=== PATIENT | male | born 1940 | race Caucasian/White ===

== ENCOUNTER 2019-08-06 10:04 | Outpatient (CLI) | payer MEDICARE, BC ==
[2019-08-06 13:17] LABS: Hemoglobin 14.3 g/dL (14.0-18.0); Mean Corpuscular HGB CONC 33.7 g/dL (32.0-36.0); Mean Corpuscular Hemoglobin 32.2 pg (27.0-31.0); Mean Corpuscular Volume 95.4 fL (78.0-98.0); Mean Platelet Volume 8.8 fL (7.4-10.4); Platelet Count 183 thou/uL (130-400); RBC Distribution Width 11.6 % (11.5-14.5); Red Blood Cell (RBC) Count 4.46 mill/uL (4.70-6.10); White Blood Cell (WBC) Count 8.1 thou/uL (4.8-10.8)
[2019-08-06 13:26] LABS: PTT 35.7 SEC (22.9-36.1)
[2019-08-06 13:32] LABS: Bacteria/HPF None Seen HPF (None Seen); Bilirubin Negative (Negative); Blood, Urine Negative (Negative); Clarity Clear (Clear); Glucose, Urine (Dipstick) Normal (Negative); Leukocyte Negative Leu/uL (Negative); Nitrite Negative (Negative); Protein, Urine (Dipstick) Negative (Neg-Trace); RBC/HPF 0-3 HPF (0-3); Squamous Epithelial 0-3 HPF (0-3); Urobilinogen Normal mg/dL (Less than 2); WBC/HPF 0-3 HPF (0-3)
[2019-08-06 13:45] LABS: Anion Gap 13 mmol/L (10-20); BUN (Urea Nitrogen) 26 mg/dL (8.4-25.7); Calc. Creatinine Clearance 0 mL/min (70-130); Calcium 9.1 mg/dL (7.8-10.44); Carbon Dioxide 23 mmol/L (23-31); Chloride 107 mmol/L (98-107); Estimated GFR-MDRD 60; Glucose 89 mg/dL (83-110); Potassium 4.3 mmol/L (3.5-5.1); Sodium 139 mmol/L (136-145)
== END 2019-08-06 10:05 | disposition home or self-care (01) ==
LOC: LABBT 10:04
PROVIDERS: ATTEND Urology
DX: Z01.818 Encounter for other preprocedural examination (principal); N40.1 Benign prostatic hyperplasia with lower urinary tract symptoms; N39.41 Urge incontinence; Q54.0 Hypospadias, balanic; R68.82 Decreased libido; E29.1 Testicular hypofunction; G47.33 Obstructive sleep apnea (adult) (pediatric); N52.9 Male erectile dysfunction, unspecified; N28.89 Other specified disorders of kidney and ureter; Z79.3 Long term (current) use of hormonal contraceptives
CPT/HCPCS: 80048; 81001; 85027; 85610; 85730; 87086; 93005; 93010

== ENCOUNTER 2019-08-11 08:13 | Outpatient (CLI) | payer MEDICARE, BC ==
--- NOTE | 2019-08-11 10:34 | RAD ---
EXAM: IVP HISTORY: BPH and ureterocele COMPARISON: None FINDINGS: A husbandry technician radiograph was performed showing a nonobstructive bowel gas pattern. No obvious calcification s are seen overlying either renal shadow. There are bilateral symmetric prompt nephrograms. The kidneys are normal in size and orientation. Symmetric excretion of contrast into the renal calyces is seen. No hydronephrosis is seen. Both ureters were seen in their entirety . No filling defects are seen in either ureter. No focal abnormality of the urinary bladder is seen. No significant post void residual. IMPRESSION: Unremarkable IVP
[2019-08-11] MEDS ORDERED: Iopamidol 300 61% 100 ML VIAL FS ONE (13:46)
== END 2019-08-11 08:14 | disposition home or self-care (01) ==
LOC: RAD 08:13
PROVIDERS: ATTEND Urology
DX: N40.1 Benign prostatic hyperplasia with lower urinary tract symptoms (principal); N13.8 Other obstructive and reflux uropathy; N28.89 Other specified disorders of kidney and ureter
CPT/HCPCS: 74410; Q9967

== ENCOUNTER 2019-08-12 08:30 | Day surgery (SDC) | payer MEDICARE, BC ==
[2019-08-06 11:35] VITALS: BMI 30.1
[2019-08-12] MEDS ORDERED: Levofloxacin 500 mg/D5W 100 ml Premix Bag ONE (08:55)
[2019-08-12] MEDS ORDERED: Lidocaine 1% PF 5 ML VIAL ONE (09:28)
[2019-08-12] MEDS ORDERED: PROPOFOL 200 MG/20 ML VIAL ONE (09:28)
[2019-08-12] MEDS ORDERED: Iothalamate Meglumine 60% 50 ML VIAL FS ONE (09:53)
[2019-08-12] MEDS ORDERED: Fentanyl 100 MCG/2 ML VIAL ONE (10:00)
[2019-08-12] MEDS ORDERED: Phenazopyridine HCl 97.5 MG TABLET ONE (11:09)
--- NOTE | 2019-08-12 11:26 | OP ---
DATE OF PROCEDURE: 08/12/2019 PREOPERATIVE DIAGNOSES: 1. A 79-year-old male with history of benign prostatic hyperplasia, urgency, or urge incontinence. 2. Testosterone deficiency. 3. Impotence. POSTOPERATIVE DIAGNOSES: 1. A 79-year-old male with history of benign prostatic hyperplasia, urgency, or urge incontinence. 2. Testosterone deficiency. 3. Impotence. PROCEDURES PERFORMED: Cystoscopy, UroLift implant x5. ANESTHESIA: TIVA. COMPLICATIONS: None apparent. DISPOSITION: To recovery room in stable condition. INDICATIONS FOR PROCEDURE AND HISTORY: Mr. Kaur is a pleasant 79-year-old male, who has been seeing me for BPH and dual medical therapy for numerous years. The patient also has decreased libido and impotence, urgency, or urge incontinence due to overactive bladder and is on testosterone replacement. He desires to discontinue his BPH medications, due to decreased sexual desire, impotence and bothersome ejaculation issues. He has been fully informed that urgency or urge incontinence can ensue despite BPH surgery. Risks and complications of the procedure were reviewed with him in detail including, but not limited to, bleeding, pain, infection, injury to adjacent organs, urosepsis, chronic pain, possible migrated implant resulting in urolithiasis warranting treatment. All questions answered to his satisfaction and desired to proceed. DESCRIPTION OF PROCEDURE: After an informed consent was signed, the patient was taken to the operating room, placed in a dorsal lithotomy position with the genital area prepped and draped in the usual surgical sterile fashion. A 21-Icelandic cystoscope was utilized for cystoscopy, which demonstrated normal anterior urethra. Prostatic urethra demonstrated bilobar hyperplasia moderately obstructing. Bladder was entered, which demonstrated trabeculated bladder consistent with chronic outlet obstructions. The right UO was in normal anatomical location, normal morphology. The left UO as previous cystoscopy demonstrated questionable ureterocele. I did obtain an IVP, which was negative. Cystoscopy under anesthesia demonstrates there was some submucosal prominence of the ureteral mucosa just medial to the left UO , however, the left UO was able to be visualized with a 70-degree lens behind this submucosal prominence, which did not appear to be an obvious ureterocele. Good efflux was noted. At this time we transitioned to UroLift implant device using a visual obturator. The bladder was entered and we implanted the left lateral lobe first being 1.5 cm proximal to the bladder neck. We placed a total of two implants on the left side, 3 implant on the right lateral lobe. This reduced his laterally obstructing lobes. At the end of the procedure, he had a wide bladder neck. He tolerated the procedure well. The patient was transported to the recovery room with an 18-Icelandic 3-way Orellana catheter if there was some oozing from the prostatic urethra. If urine output was relatively clear, I will discontinue his Orellana catheter for a voiding trial. The patient will be discharged with Levaquin x3 days, Che andrews Job ID: [id number]
[2019-08-12] MEDS ORDERED: HYDROcodone/Acetaminophen 5/325 mg Tablet ONE (12:03)
== END 2019-08-12 15:05 | disposition home or self-care (01) ==
LOC: SDC 08:30
PROVIDERS: ATTEND Urology
PROC: 0T7D8DZ Dilation of Urethra with Intraluminal Device, Via Natural or Artificial Opening Endoscopic (ICD-10-PCS; principal; 2019-08-12)
DX: N40.1 Benign prostatic hyperplasia with lower urinary tract symptoms (principal); N39.41 Urge incontinence; E29.1 Testicular hypofunction; N52.9 Male erectile dysfunction, unspecified; I10 Essential (primary) hypertension; K21.9 Gastro-esophageal reflux disease without esophagitis; G47.33 Obstructive sleep apnea (adult) (pediatric); F32.9 Major depressive disorder, single episode, unspecified; Q54.0 Hypospadias, balanic; Z86.73 Personal history of transient ischemic attack (TIA), and cerebral infarction without residual deficits; Z87.891 Personal history of nicotine dependence; Z79.899 Other long term (current) drug therapy; Z99.89 Dependence on other enabling machines and devices
CPT/HCPCS: C1889; C9740; J1956; J2001; J2704; J3010

== ENCOUNTER 2020-11-16 08:25 | Outpatient (CLI) | payer MEDICARE, BC | END 2020-11-16 08:26 | disposition home or self-care (01) | LOC: BICMRI 08:25 | PROVIDERS: ATTEND Psychiatry & Neurology Epilepsy | DX: G91.2 (Idiopathic) normal pressure hydrocephalus (principal); I67.82 Cerebral ischemia; Z86.73 Personal history of transient ischemic attack (TIA), and cerebral infarction without residual deficits | CPT/HCPCS: 70551 ==

== ENCOUNTER 2020-12-01 08:51 | Outpatient (CLI) | payer MEDICARE, BC ==
[2020-12-01 11:45] LABS: Albumin (w/Testosterone Panel) 4.3 g/dL
[2020-12-01 12:08] LABS: Sex Hormone Binding Globulin 23.7 nmol/L (11-78); Testosterone, Free 53.1 pg/mL (47-244)
== END 2020-12-01 08:52 | disposition home or self-care (01) ==
LOC: SCSRAD 08:51
PROVIDERS: ATTEND Family Medicine
DX: M43.16 Spondylolisthesis, lumbar region (principal); E29.1 Testicular hypofunction; R53.83 Other fatigue; M47.816 Spondylosis without myelopathy or radiculopathy, lumbar region
CPT/HCPCS: 36415; 72110; 84270; 84403; 84443

== ENCOUNTER 2021-01-26 11:01 | Outpatient (CLI) | payer MEDICARE, BC | END 2021-01-26 11:02 | disposition home or self-care (01) | LOC: LABBT 11:01 | PROVIDERS: ATTEND Surgery | DX: Z01.810 Encounter for preprocedural cardiovascular examination (principal); M43.16 Spondylolisthesis, lumbar region; M48.062 Spinal stenosis, lumbar region with neurogenic claudication | CPT/HCPCS: 80048; 85027; 85610; 85730; 86850; 86900; 86901; 93005; 93010 ==

== ENCOUNTER 2021-03-22 09:00 | Outpatient (CLI) | payer MEDICARE, BC | END 2021-03-22 09:01 | disposition home or self-care (01) | LOC: TBSIIMAG 09:00 | PROVIDERS: ATTEND Family Medicine | DX: M47.26 Other spondylosis with radiculopathy, lumbar region (principal); M48.062 Spinal stenosis, lumbar region with neurogenic claudication; M43.16 Spondylolisthesis, lumbar region; Z98.890 Other specified postprocedural states | CPT/HCPCS: 72100 ==

== ENCOUNTER 2021-09-29 08:32 | Outpatient (CLI) | payer MEDICARE, BC | END 2021-09-29 08:33 | disposition home or self-care (01) | LOC: SCSMRI 08:32 | PROVIDERS: ATTEND Psychiatry & Neurology Epilepsy | DX: M48.02 Spinal stenosis, cervical region (principal); M47.812 Spondylosis without myelopathy or radiculopathy, cervical region | CPT/HCPCS: 72141 ==

== ENCOUNTER 2023-03-14 12:33 | Outpatient (CLI) | payer MEDICARE, BC ==
[~2023-03-14 12:33] MED LIST: Iopamidol 370 76% 100 ML VIAL ONE
== END 2023-03-14 12:34 | disposition home or self-care (01) ==
LOC: CT 12:33
PROVIDERS: ATTEND Family Medicine
DX: R10.9 Unspecified abdominal pain (principal); I70.0 Atherosclerosis of aorta; I70.8 Atherosclerosis of other arteries; N28.1 Cyst of kidney, acquired; N28.82 Megaloureter; K57.30 Diverticulosis of large intestine without perforation or abscess without bleeding; K44.9 Diaphragmatic hernia without obstruction or gangrene; K42.9 Umbilical hernia without obstruction or gangrene; K40.20 Bilateral inguinal hernia, without obstruction or gangrene, not specified as recurrent; N32.89 Other specified disorders of bladder; M47.816 Spondylosis without myelopathy or radiculopathy, lumbar region; M16.11 Unilateral primary osteoarthritis, right hip; R93.422 Abnormal radiologic findings on diagnostic imaging of left kidney; Z98.890 Other specified postprocedural states
CPT/HCPCS: 74177

== ENCOUNTER 2024-05-04 11:28 | Inpatient (IN) | payer BC, MEDICARE, SELFPAY ==
[2024-05-04] MEDS ORDERED: Aspirin Chewable 81 MG TAB ONE (12:36)
[2024-05-04 12:40] LABS: #Basophils 0.04 10x3/uL (0.0-0.2); %Basophils 0.4 % (0.0-1.0); %Eosinophils 2.3 % (0.0-10.0); %Lymphocytes 21.8 % (21.0-51.0); %Monocytes 11.2 % (0.0-10.0); %Neutrophils 63.8 % (42.0-75.0); Hematocrit 43.1 % (42.0-52.0); Hemoglobin 14.3 g/dL (14.0-18.0); Mean Corpuscular HGB CONC 33.2 g/dL (32.0-36.0); Mean Corpuscular Hemoglobin 32.3 pg (27.0-31.0); Mean Corpuscular Volume 97.3 fL (78.0-98.0); Mean Platelet Volume 10.3 fL (7.4-10.4); Platelet Count 208 10x3/uL (130-400); RBC Distribution Width 12.9 % (11.5-14.5); Red Blood Cell (RBC) Count 4.43 mill/uL (4.70-6.10)
[2024-05-04] MEDS ORDERED: Azithromycin 500 MG VIAL ONE (12:55)
[2024-05-04] MEDS ORDERED: Ondansetron PF 4 MG/2 ML Vial IVP PRN (12:59)
[2024-05-04] MEDS ORDERED: Acetaminophen 325 MG TAB PO PRN (12:59)
[2024-05-04 13:05] LABS: ALT (SGPT) 12 U/L (8-55); AST (SGOT) 15 U/L (5-34); Albumin 3.7 g/dL (3.4-4.8); Alkaline Phosphatase 53 U/L (40-110); Anion Gap 12 mmol/L (10-20); BUN (Urea Nitrogen) 24 mg/dL (8.4-25.7); Bilirubin, Total 0.5 mg/dL (0.2-1.2); Calc. Creatinine Clearance 0 mL/min (70-130); Calcium 9.2 mg/dL (7.8-10.44); Carbon Dioxide 26 mmol/L (23-31); Chloride 105 mmol/L (98-107); Estimated GFR 58; Globulin 3.4 g/dL (2.4-3.5); Glucose 94 mg/dL (83-110); Protein, Total 7.1 g/dL (5.8-8.1); Sodium 139 mmol/L (136-145)
[2024-05-04 13:08] LABS: Troponin I 0.011 ng/mL (< 0.028)
[2024-05-04] MEDS ORDERED: Nitroglycerin 50 MG/250 ML BOT 250 ML ONE (13:59)
[2024-05-04] MEDS ORDERED: Heparin 10,000 UNITS/ 10 ML VIAL ONE (13:59)
[2024-05-04] MEDS ORDERED: Verapamil 5 MG/2 ML VIAL ONE (13:59)
[2024-05-04] MEDS ORDERED: Adenosine 6 mg (2 mL) VIAL ONE (14:15)
[2024-05-04] MEDS ORDERED: Clopidogrel Bisulfate 300 MG TAB ONE (15:45)
[2024-05-04] MEDS: Heparin 5,000 UNITS/ML VIAL SC SCH (17:55)
[2024-05-04 18:01] VITALS: BMI 29.5
[2024-05-04 18:49] LABS: Troponin I Less than 0.010 ng/mL (< 0.028)
[2024-05-05 04:51] LABS: #Basophils 0.05 10x3/uL (0.0-0.2); %Basophils 0.5 % (0.0-1.0); %Eosinophils 2.5 % (0.0-10.0); %Lymphocytes 25.8 % (21.0-51.0); %Monocytes 11.8 % (0.0-10.0); %Neutrophils 58.9 % (42.0-75.0); Hematocrit 39.2 % (42.0-52.0); Mean Corpuscular HGB CONC 33.2 g/dL (32.0-36.0); Mean Corpuscular Hemoglobin 32.7 pg (27.0-31.0); Mean Corpuscular Volume 98.5 fL (78.0-98.0); Mean Platelet Volume 10.3 fL (7.4-10.4); Platelet Count 185 10x3/uL (130-400); RBC Distribution Width 12.7 % (11.5-14.5); Red Blood Cell (RBC) Count 3.98 mill/uL (4.70-6.10)
[2024-05-05 05:36] LABS: Anion Gap 14 mmol/L (10-20); BUN (Urea Nitrogen) 22 mg/dL (8.4-25.7); Calc. Creatinine Clearance 55 mL/min (70-130); Calcium 8.7 mg/dL (7.8-10.44); Carbon Dioxide 23 mmol/L (23-31); Chloride 108 mmol/L (98-107); Estimated GFR 52; Glucose 87 mg/dL (83-110); Potassium 4.6 mmol/L (3.5-5.1); Sodium 140 mmol/L (136-145)
[2024-05-05] MEDS ORDERED: Non-Formulary Item 1 EACH (Olmesartan Medoxomil [Benicar] 20 MG Tab) PO SCH (09:00)
[2024-05-05] MEDS ORDERED: Atorvastatin Calcium 10 MG TAB PO SCH (09:00)
[2024-05-05] MEDS ORDERED: Non-Formulary Item 1 EACH (Mirabegron [Myrbetriq] 50 MG Tab.Er.24h) PO SCH (09:00)
[2024-05-05] MEDS ORDERED: Losartan 25 MG TAB PO SCH (09:00)
[2024-05-05] MEDS: Mirabegron ER 25 MG ER.TAB PO SCH (09:35)
[2024-05-05] MEDS: Donepezil HCl 5 MG TAB PO SCH (09:35)
[2024-05-05] MEDS: Pantoprazole DR 40 MG TAB PO SCH (09:35)
[2024-05-05] MEDS: Aspirin 81 mg Enteric Coated Tablet PO SCH (09:35)
[2024-05-05] MEDS: Clopidogrel Bisulfate 75 MG TAB PO SCH (09:35)
[2024-05-05 12:22] LABS: Troponin I Less than 0.010 ng/mL (< 0.028)
[2024-05-05] MEDS: Morphine 2 MG/ML VIAL SLOW IVP SCH (12:44)
[2024-05-05 14:46] LABS: Troponin I Less than 0.010 ng/mL (< 0.028)
[2024-05-05] MEDS ORDERED: Morphine 2 MG/ML VIAL SLOW IVP PRN (15:28)
[2024-05-05] MEDS: Isosorbide Mononitrate 30 MG ER.TAB PO SCH (16:52)
[2024-05-05 18:30] LABS: Troponin I Less than 0.010 ng/mL (< 0.028)
[2024-05-05] MEDS: Atorvastatin Calcium 40 MG TAB PO SCH (21:46)
[2024-05-05] MEDS: Amlodipine 10 MG TAB PO SCH (21:46)
[2024-05-06 04:56] LABS: Anion Gap 12 mmol/L (10-20); BUN (Urea Nitrogen) 19 mg/dL (8.4-25.7); Calc. Creatinine Clearance 59 mL/min (70-130); Calcium 9.2 mg/dL (7.8-10.44); Carbon Dioxide 24 mmol/L (23-31); Chloride 109 mmol/L (98-107); Estimated GFR 56; Glucose 102 mg/dL (83-110); Potassium 4.5 mmol/L (3.5-5.1); Sodium 140 mmol/L (136-145)
[2024-05-06] MEDS: PARoxetine 20 MG TAB PO SCH (09:23)
[2024-05-06] MEDS: Isosorbide Mononitrate 30 MG ER.TAB PO SCH (09:23)
[2024-05-06] MEDS: Memantine 5 MG TAB PO SCH (09:24)
[2024-05-06] MEDS: Trospium 20 MG TAB PO SCH (09:24)
[2024-05-06 12:46] VITALS: BP 128/75; TEMP 98.1
[2024-05-06] MEDS: FLU (Fluad Triv) TS24-25 (65UP)/MF59C/PF 45 MCG/0.5 ML Syringe IM ONE (13:59)
== END 2024-05-06 12:50 | disposition home or self-care (01) | DRG 322 ==
LOC: ERS 11:28 → ERHOLD 13:35 → SURG A 14:11 → 2SW 17:21 → OBSVTOIN 05-05 15:21
PROVIDERS: ADMIT Internal Medicine; ATTEND Family Medicine
PROC: 4A023N7 Measurement of Cardiac Sampling and Pressure, Left Heart, Percutaneous Approach (ICD-10-PCS; principal; 2024-05-04)
PROC: 027035Z Dilation of Coronary Artery, One Artery with Two Drug-eluting Intraluminal Devices, Percutaneous Approach (ICD-10-PCS; 2024-05-04)
PROC: B2151ZZ Fluoroscopy of Left Heart using Low Osmolar Contrast (ICD-10-PCS; 2024-05-04)
PROC: B2111ZZ Fluoroscopy of Multiple Coronary Arteries using Low Osmolar Contrast (ICD-10-PCS; 2024-05-04)
PROC: B240ZZ3 Ultrasonography of Single Coronary Artery, Intravascular (ICD-10-PCS; 2024-05-04)
DX: I25.110 Atherosclerotic heart disease of native coronary artery with unstable angina pectoris (principal); Z66 Do not resuscitate; I10 Essential (primary) hypertension; E78.5 Hyperlipidemia, unspecified; K21.9 Gastro-esophageal reflux disease without esophagitis; F03.A0 Unspecified dementia, mild, without behavioral disturbance, psychotic disturbance, mood disturbance, and anxiety; Z98.890 Other specified postprocedural states; Z79.899 Other long term (current) drug therapy; Z79.82 Long term (current) use of aspirin
CPT/HCPCS: 36415; 71045; 80048; 80053; 83690; 84484; 85025; 85347; 92928; 92978; 93005; 93010; 93306; 93458; 94760; 96372; 96374; 96375; C1753; C1769; C1874; C1887; C1894; C9600; G0378; J0153; J0456; J1644; J2272; Q9967

== ENCOUNTER 2025-02-25 08:55 | Outpatient (CLI) | payer MEDICARE | END 2025-02-25 08:56 | disposition home or self-care (01) | LOC: SCSMRI 08:55 | PROVIDERS: ATTEND Psychiatry & Neurology Epilepsy | DX: G30.9 Alzheimer's disease, unspecified (principal); G31.9 Degenerative disease of nervous system, unspecified; I67.82 Cerebral ischemia; G93.89 Other specified disorders of brain; I73.89 Other specified peripheral vascular diseases | CPT/HCPCS: 36415; 70551; 82607; 84443 ==

== ENCOUNTER 2025-06-07 11:05 | Outpatient (CLI) | payer MEDICARE | END 2025-06-07 11:06 | disposition home or self-care (01) | LOC: SCSMRI 11:05 | PROVIDERS: ATTEND Psychiatry & Neurology Epilepsy | DX: G30.9 Alzheimer's disease, unspecified (principal) | CPT/HCPCS: 70551 ==

== ENCOUNTER 2025-07-05 09:12 | Outpatient (CLI) | payer MEDICARE | END 2025-07-05 09:13 | disposition home or self-care (01) | LOC: SCSMRI 09:12 | PROVIDERS: ATTEND Psychiatry & Neurology Epilepsy | DX: G30.9 Alzheimer's disease, unspecified (principal) | CPT/HCPCS: 70551; 71045 ==